=== PATIENT | female | born 1975 | race African-American/Black ===

== ENCOUNTER 2018-10-02 04:39 | Inpatient (IN) | payer SELFPAY ==
[2018-10-02] MEDS ORDERED: Morphine 4 MG/ML VIAL ONE (05:18)
[2018-10-02] MEDS ORDERED: Senokot S 8.6-50 MG TAB PO PRN (08:01)
[2018-10-02] MEDS ORDERED: Acetaminophen 325 MG TAB PO PRN (08:01)
[2018-10-02] MEDS ORDERED: Ketorolac Tromethamine 30 MG/ML VIAL IVP PRN (08:01)
[2018-10-02] MEDS ORDERED: Calcium Carbonate 500 MG ChewTAB PO PRN (08:01)
[2018-10-02] MEDS ORDERED: Ondansetron PF 4 MG/2 ML Vial IVP PRN (08:01)
[2018-10-02] MEDS ORDERED: Zolpidem Tartrate 5 MG TAB PO PRN (08:01)
[2018-10-02] MEDS ORDERED: hydrALAZINE 20 MG/ML VIAL SLOW IVP PRN (08:01)
[2018-10-02] MEDS ORDERED: Bisacodyl 10 MG SUPP PR PRN (08:01)
[2018-10-02] MEDS ORDERED: Cepastat Lozenges 1 LOZ PO PRN (08:01)
[2018-10-02] MEDS ORDERED: Loratadine 10 MG TAB PO PRN (08:01)
[2018-10-02] MEDS ORDERED: Sodium Chloride 0.65% Nasal 44 ML BOT EA NARE PRN (08:01)
[2018-10-02] MEDS ORDERED: Ondansetron ODT 4 MG TAB PO PRN (08:01)
[2018-10-02] MEDS ORDERED: Loperamide HCl 2 MG CAP PO PRN (08:01)
--- NOTE | 2018-10-02 08:32 | ULT ---
ULTRASOUND WITH DOPPLER DUPLEX VENOUS LOWER EXTREMITY LEFT: CPT: 94170 ICD-10-PCS: B54D HISTORY: Erythema, edema. TECHNIQUE: Color flow Doppler, spectral waveform analysis of pulsed Doppler, and salgeuro-scale imaging with lindsay comfort and augmentation, were used to evaluate the bilateral common femoral, femoral, popliteal, chain splitter ior tibial, and superficial femoral, veins; and the proximal portions of the profunda femoral and gre ater saphenous, veins. FINDINGS: Appropriate compressibility and flow within the imaged deep vein system of left lower extremity. IMPRESSION: 1. No deep vein thrombosis. 2. Incidental note of lymph nodes of the left inguinal region. Correlate clinically. Dominant visu alized lymph node is approximately 3.6 cm in length x 1.2 cm in diameter. A fatty hilum is visualize d. POS: [facility]
[2018-10-02] MEDS: HYDROcodone/Acetaminophen 5/325 mg Tablet PO PRN ×3 (08:33→20:52)
[2018-10-02] MEDS: Famotidine 20 MG TAB PO SCH ×2 (08:34→20:52)
[2018-10-02] MEDS: Enoxaparin Sodium 40 MG/0.4 ML SYRINGE SC SCH (08:35)
[2018-10-02] MEDS: Morphine 4 MG/ML VIAL IV PRN ×3 (10:05→23:01)
[2018-10-02 10:19] VITALS: BMI 56.2
[2018-10-02] MEDS: Piperacillin/Tazobactam 4.5 GM in Sodium Chloride 0.9% 100 ML IVPB SCH ×3 (12:11→23:21)
--- NOTE | 2018-10-02 13:50 | HP ---
PRIMARY CARE PHYSICIAN: [facility]. REASON FOR ADMISSION: Transfer from [facility] for left lower extremity cellulitis, sepsis. HISTORY OF PRESENT ILLNESS: This is a 43-year-old female, who has underlying morbid obesity, who presented to [facility] with a complaint of left lower extremity erythema, swelling, and pain. She was also having fever and chills. She did not have any chest pain or palpitation. The patient does not have any recall of any trauma or insect bite. The patient denies any fungal infection in toenails. She denies any similar problem in the past. The patient was having increasing amount of pain in her left lower extremity with 8/10 in intensity. She was also feeling vague discomfort in the groin on the left side. She was having difficulty walking because of pain and swelling and that is why she decided to go to emergency room for evaluation. At [facility], the patient had fever, tachycardia, as well as leukocytosis with left shift and she was meeting sepsis criteria. She had slightly elevated D-dimer and that is why CT angio was done, which was negative for pulmonary embolism. Her chest x-ray was unremarkable. She received antibiotic therapy there, and subsequently, she was transferred to our hospital for higher level of care. The patient was given morphine in our emergency room. An ultrasound was done, which was negative for any DVT. REVIEW OF SYSTEMS: CONSTITUTIONAL: Negative for weight loss or gain, ability to conduct usual activities. SKIN: Negative for rash, itching. EYES: Negative for double vision, pain. ENT/MOUTH: Negative for nose bleeding, neck stiffness, pain, tenderness. CARDIOVASCULAR: Negative for palpitations, dyspnea on exertion, orthopnea. RESPIRATORY: Negative for shortness of breath, wheezing, cough, hemoptysis, fever or night sweats. GASTROINTESTINAL: Negative for poor appetite, abdominal pain, heartburn, nausea, vomiting, constipation, or diarrhea. GENITOURINARY: Negative for urgency, frequency, dysuria, nocturia. MUSCULOSKELETAL: Negative for pain, swelling. NEUROLOGIC/PSYCHIATRIC: Negative for anxiety, depression. ALLERGY/IMMUNOLOGIC: Negative for skin rash, bleeding tendency. Please see my HPI for pertinent positives and negatives. All other review of systems reviewed and negative except as mentioned in HPI. PAST MEDICAL HISTORY: Morbid obesity. PAST SURGICAL HISTORY: Reviewed and negative. PAST PSYCHIATRIC HISTORY: Reviewed and negative. SOCIAL HISTORY: The patient drinks alcohol every week. She smokes cigarettes about less than half pack per day. She denies any other illicit drug abuse. FAMILY HISTORY: No strong family history of premature coronary artery disease, stroke, or cancer. ALLERGIES: NO KNOWN DRUG ALLERGIES. CURRENT HOME MEDICATIONS: The patient is not taking any prescribed or non-prescribed medications. EMERGENCY ROOM COURSE: The patient is given morphine 4 mg in our emergency room. The patient received IV fluid, vancomycin, Toradol, Zosyn, Zofran, morphine at [facility]. PHYSICAL EXAMINATION: VITAL SIGNS: On arrival, blood pressure 143/82, pulse 104, respiratory rate 18, temperature 99.0, saturation 98% on room air. Weight 127 kg. GENERAL: The patient is currently alert and oriented, in no acute distress. HEENT: Head; normocephalic, atraumatic. Eyes; pupils round, reactive to light. Extraocular muscle intact. ENT; oropharynx within normal limits. Moist mucous membranes. No oral lesion. No pharyngeal erythema. No exudate. NECK: Supple. No JVD. No thyromegaly. No carotid bruit. No jugular venous distention. LUNGS: Clear to auscultation without any rhonchi or rales. CARDIAC: S1 and S2, regular. Tachycardia. No murmur. No gallop. No rub. ABDOMEN: Soft. Bowel sounds present. Morbid obesity present. No peritoneal sign. No guarding. No rigidity. No rebound. BACK: Unremarkable. No CVA tenderness. EXTREMITIES: Upper extremities; passive movements of all joints are normal. Lower extremities; left lower extremity erythema, tenderness, and swelling noted. Good distal pulsation. No calf tenderness. SKIN: No skin rash, other than cellulitis of left lower extremity. NEUROLOGIC: Nonfocal examination. PSYCHIATRIC: Normal affect. SIGNIFICANT LABORATORY DATA: WBC 13.8, hemoglobin 10.8, platelets 421 with bandemia. INR 1.1. D-dimer 0.92. BMP; sodium 137, potassium 3.6, chloride 107, carbon dioxide 19, BUN 19, creatinine 1.06, glucose 103, and calcium 10.0. Lactic acid 1.7. LFT; AST 35, ALT 33, alkaline phosphatase 64, and albumin 4.2. test negative. Cardiac enzyme negative. ASSESSMENT AND PLAN: 1. Sepsis due to left lower extremity cellulitis. 2. Left lower extremity cellulitis. 3. Anemia, normocytic and normochromic. 4. Morbid obesity. PLAN: Admission to medical floor. Empiric antibiotic therapy with vancomycin. Pharmacy adjusted dose of Zosyn 4.5 g IV q.6 hourly. Pain control with morphine 4 mg q.4 hourly p.r.n. and Toradol 15 mg IV q.6 hourly p.r.n. DVT prophylaxis with Lovenox 40 mg subcu daily. GI prophylaxis with Pepcid 20 mg p.o. b.i.d. CODE STATUS: The patient is full code. The patient does not have any surrogate decision maker. DISPOSITION PLAN: Based on clinical course, we are expecting the patient's stay in hospital more than 2 midnights. Plan of care discussed with the patient in detail. This patient has negative CT angio, negative ultrasound of lower extremities, and negative chest x-ray. Job ID: [id number]
[2018-10-03] MEDS: HYDROcodone/Acetaminophen 5/325 mg Tablet PO PRN ×3 (00:37→20:16)
[2018-10-03 05:02] LABS: #Eosinphils 0.1 thou/uL (0.0-0.7); #Lymphocytes 1.8 thou/uL (1.20-3.40); #Monocytes 0.4 thou/uL (0.11-0.59); #Neutrophils 8.5 thou/uL (1.40-6.50); %Basophils 0.2 % (0.0-1.0); %Eosinophils 1.1 % (0.0-10.0); %Lymphocytes 16.2 % (21.0-51.0); %Neutrophils 78.5 % (42.0-75.0); Hemoglobin 8.6 g/dL (12.0-16.0); Mean Corpuscular HGB CONC 31.2 g/dL (32.0-36.0); Mean Corpuscular Hemoglobin 25.4 pg (27.0-31.0); Mean Corpuscular Volume 81.5 fL (78.0-98.0); Mean Platelet Volume 7.4 fL (7.4-10.4); Platelet Count 317 thou/uL (130-400); RBC Distribution Width 15.3 % (11.5-14.5); Red Blood Cell (RBC) Count 3.39 mill/uL (4.20-5.40); White Blood Cell (WBC) Count 10.8 thou/uL (4.8-10.8)
[2018-10-03 05:24] LABS: ALT (SGPT) 18 U/L (8-55); AST (SGOT) 13 U/L (5-34); Albumin 3.2 g/dL (3.5-5.0); Alkaline Phosphatase 51 U/L (40-150); Anion Gap 12 mmol/L (10-20); BUN (Urea Nitrogen) 9 mg/dL (7.0-18.7); Bilirubin, Total 0.4 mg/dL (0.2-1.2); Calc. Creatinine Clearance 203 mL/min (70-130); Calcium 8.5 mg/dL (7.8-10.44); Carbon Dioxide 18 mmol/L (22-29); Chloride 109 mmol/L (98-107); Estimated GFR-MDRD Greater than 90; Globulin 3.2 g/dL (2.4-3.5); Glucose 107 mg/dL (70-105); Potassium 3.6 mmol/L (3.5-5.1); Protein, Total 6.4 g/dL (6.0-8.3); Sodium 135 mmol/L (136-145)
[2018-10-03] MEDS: Piperacillin/Tazobactam 4.5 GM in Sodium Chloride 0.9% 100 ML IVPB SCH ×3 (05:24→18:10)
[2018-10-03] MEDS: Morphine 4 MG/ML VIAL IV PRN (08:21)
[2018-10-03] MEDS: Famotidine 20 MG TAB PO SCH ×2 (08:22→20:15)
[2018-10-03] MEDS: Enoxaparin Sodium 40 MG/0.4 ML SYRINGE SC SCH (08:22)
[2018-10-03] MEDS ORDERED: Polyethylene Glycol 3350 17 GM Packet PO PRN (12:05)
--- NOTE | 2018-10-03 14:44 | PDOC.PN ---
- Subjective Encounter Start Date: 10/03/18 Encounter Start Time: 11:00 Still complaining of some pain in the left leg. Has difficulty putting weight on it. Has pain up to the groin area. - Objective Resuscitation Status - Order Detail: 10/02/18 07:53 Resuscitation Status Routine Resuscitation Status: FULL: Full Resuscitation Vital Signs & Weight: Vital Signs (12 hours) Temp Pulse Resp BP Pulse Ox 10/03/18 11:09 99.7 F H 81 18 145/79 H 97 10/03/18 08:00 100 10/03/18 07:50 99.5 F 97 20 172/77 H 100 10/03/18 05:29 150/78 H Weight Weight 307 lb 5 oz I&O: 10/02/18 10/03/18 10/04/18 06:59 06:59 06:59 Intake Total 1720 200 Balance 1720 200 Result Diagrams: 10/03/18 04:49 10/03/18 04:48 Phys Exam - Physical Examination Constitutional: NAD Morbidly obese Respiratory: no wheezing, no rales, no rhonchi, clear to auscultation bilateral Cardiovascular: RRR, no significant murmur, no rub Gastrointestinal: soft, non-tender, no distention, positive bowel sounds Musculoskeletal: no edema, pulses present Left calf erythema, warmth and TTP. Very tender over the calf and medial thigh area. No erytema or warmth in the thigh. Neurological: non-focal, normal sensation, moves all 4 limbs Psychiatric: normal affect, A&O x 3 Skin: no rash, normal turgor, cap refill <2 seconds Dx/Plan (1) Cellulitis Code(s): L03.90 - CELLULITIS, UNSPECIFIED Status: Acute (2) Morbid obesity Code(s): E66.01 - MORBID (SEVERE) OBESITY DUE TO EXCESS CALORIES Status: Acute (3) Lymphadenopathy Code(s): R59.1 - GENERALIZED ENLARGED LYMPH NODES Status: Acute Comment: Inguinal ELLIOT on doppler. - Plan * Cellulitis with DVT ruled out. * Continue Vanc, Zosyn. * Pain meds including IV morphine. * Will likely requre 2 more days before switching to po.
[2018-10-04] MEDS: Piperacillin/Tazobactam 4.5 GM in Sodium Chloride 0.9% 100 ML IVPB SCH ×5 (00:22→23:24)
[2018-10-04] MEDS: Enoxaparin Sodium 40 MG/0.4 ML SYRINGE SC SCH (08:01)
[2018-10-04] MEDS: Famotidine 20 MG TAB PO SCH ×2 (08:01→21:21)
[2018-10-04] MEDS: HYDROcodone/Acetaminophen 5/325 mg Tablet PO PRN ×2 (08:06→21:25)
[2018-10-04] MEDS ORDERED: Hydrochlorothiazide 25 MG TAB PO SCH (10:00)
--- NOTE | 2018-10-04 10:04 | PDOC.PN ---
- Subjective Encounter Start Date: 10/04/18 Encounter Start Time: 10:01 Feels a little better. Still has some pain, but improved. Still has some pain in the left upper, medial thigh near the groin. Feels a little chest congestion. - Objective Resuscitation Status - Order Detail: 10/02/18 07:53 Resuscitation Status Routine Resuscitation Status: FULL: Full Resuscitation Vital Signs & Weight: Vital Signs (12 hours) Temp Pulse Resp BP Pulse Ox 10/04/18 07:49 99.6 F 88 16 164/94 H 93 L 10/04/18 04:06 97.8 F 75 18 165/90 H 100 10/04/18 00:29 98.5 F 74 18 152/90 H 97 Weight Weight 307 lb 5 oz I&O: 10/03/18 10/04/18 10/05/18 06:59 06:59 06:59 Intake Total 1720 1120 Balance 1720 1120 Result Diagrams: 10/03/18 04:49 10/03/18 04:48 Phys Exam - Physical Examination Constitutional: NAD Obese. Respiratory: no wheezing, no rales, no rhonchi Cardiovascular: RRR, no significant murmur, no rub Gastrointestinal: soft, non-tender, no distention, positive bowel sounds Musculoskeletal: no edema Left calf with erythema and warmth. TTP at calf and upper, medial thigh. Neurological: non-focal, normal sensation, moves all 4 limbs Psychiatric: normal affect, A&O x 3 Dx/Plan (1) Cellulitis Code(s): L03.90 - CELLULITIS, UNSPECIFIED Status: Acute (2) Morbid obesity Code(s): E66.01 - MORBID (SEVERE) OBESITY DUE TO EXCESS CALORIES Status: Acute (3) Lymphadenopathy Code(s): R59.1 - GENERALIZED ENLARGED LYMPH NODES Status: Acute Comment: Inguinal ELLIOT on doppler. (4) HTN (hypertension) Code(s): I10 - ESSENTIAL (PRIMARY) HYPERTENSION Status: Acute (5) Anemia Code(s): D64.9 - ANEMIA, UNSPECIFIED Status: Acute - Plan * Looking better. Continue IV abx one more day. * Start HCTZ for HTN. * Up and ambulate as tolerated. * Recheck CBC and anemia panel in am.
[2018-10-04 12:05] LABS: Vancomycin, Trough 4.8 ug/mL
[2018-10-04] MEDS: Diabetic Tussin 200 MG/10 ML UDCUP PO PRN (21:25)
[2018-10-05 05:27] VITALS: BP 147/83; TEMP 98.1
[2018-10-05] MEDS: Piperacillin/Tazobactam 4.5 GM in Sodium Chloride 0.9% 100 ML IVPB SCH ×2 (05:33→11:38)
[2018-10-05 07:02] LABS: #Eosinphils 0.2 thou/uL (0.0-0.7); #Lymphocytes 2.1 thou/uL (1.20-3.40); #Monocytes 0.8 thou/uL (0.11-0.59); %Basophils 0.6 % (0.0-1.0); %Eosinophils 3.1 % (0.0-10.0); %Lymphocytes 29.7 % (21.0-51.0); %Monocytes 10.5 % (0.0-10.0); %Neutrophils 56.1 % (42.0-75.0); Hemoglobin 9.1 g/dL (12.0-16.0); Mean Corpuscular HGB CONC 32.2 g/dL (32.0-36.0); Mean Corpuscular Hemoglobin 25.4 pg (27.0-31.0); Mean Corpuscular Volume 78.9 fL (78.0-98.0); Mean Platelet Volume 7.3 fL (7.4-10.4); Platelet Count 326 thou/uL (130-400); RBC Distribution Width 15.3 % (11.5-14.5); Red Blood Cell (RBC) Count 3.58 mill/uL (4.20-5.40); White Blood Cell (WBC) Count 7.1 thou/uL (4.8-10.8)
[2018-10-05 07:28] LABS: Anion Gap 13 mmol/L (10-20); BUN (Urea Nitrogen) 9 mg/dL (7.0-18.7); Calc. Creatinine Clearance 195 mL/min (70-130); Calcium 9.6 mg/dL (7.8-10.44); Carbon Dioxide 22 mmol/L (22-29); Chloride 106 mmol/L (98-107); Estimated GFR-MDRD Greater than 90; Glucose 96 mg/dL (70-105); Iron 17 ug/dL (50-170); Iron Binding Capacity, Total 353 mcg/dL (265-497); Potassium 3.6 mmol/L (3.5-5.1); Sodium 137 mmol/L (136-145)
[2018-10-05] MEDS: Enoxaparin Sodium 40 MG/0.4 ML SYRINGE SC SCH (07:55)
[2018-10-05] MEDS ORDERED: Hydrochlorothiazide 25 MG TAB PO SCH (09:00)
[2018-10-05 09:11] LABS: Folate (Folic Acid) 7.3 ng/mL (7.0-31.4)
[2018-10-05] MEDS: HYDROcodone/Acetaminophen 5/325 mg Tablet PO PRN (10:14)
[2018-10-05] MEDS: Diabetic Tussin 200 MG/10 ML UDCUP PO PRN (10:14)
[2018-10-05] MEDS: Famotidine 20 MG TAB PO SCH (11:05)
--- NOTE | 2018-10-06 02:19 | DIS ---
DATE OF ADMISSION: 10/02/2018 DATE OF DISCHARGE: 10/05/2018 DISCHARGE DIAGNOSES: 1. Cellulitis of left lower extremity. 2. Hypertension. 3. Morbid obesity. 4. Left inguinal lymphadenopathy. 5. Mild iron deficiency anemia. HISTORY OF PRESENT ILLNESS: This patient is a 43-year-old female, who presented to the emergency department with pain and swelling in her left lower extremity. She had had no antecedent injury. The patient had some mild leukocytosis and fever , as well as tachycardia. She had elevated D-dimer. CT scan was done, showed no pulmonary embolus. Chest x-ray was unremarkable. She was transferred to our facility for cellulitis, left lower extremity erythema and warmth circumferentially around the calf, below the knee and to the level of ankle. Doppler ultrasound showed no DVT that there was a lymph node in the left inguinal canal area. HOSPITAL COURSE: The patient was admitted to the hospital, started on IV antibiotics including vancomycin and Zosyn over the following couple days. The patient's pain improved. Her erythema reduced significantly and she remained afebrile. She was felt to be stable for discharge to home in good condition. Her blood pressure was remaining high throughout her hospital stay. She was started on some hydrochlorothiazide and encouraged to follow up on this as an outpatient. PHYSICAL EXAMINATION: VITAL SIGNS: At the time of discharge, temperature is 98.1, pulse 73, respirations 18, O2 saturation 97% on room air, and blood pressure is 147/83. GENERAL APPEARANCE: Age-appropriate female, obese, no distress. HEART: Regular. LUNGS: Clear. EXTREMITIES: Left lower extremity had significantly diminished erythema and warmth and tenderness to palpation. DISPOSITION: The patient is discharged to home. She will be on a heart healthy diet. ACTIVITY: As tolerated. DISCHARGE MEDICATIONS: She will be on amoxicillin 875 one p.o. b.i.d., HCTZ 25 mg p.o. daily. FOLLOWUP: She is to follow up at [facility] and she can return to the hospital should she have any problems prior to that time. Of note, the patient also had hemoglobin of 9.1 at the time of discharge. Her MCV was 78.9. Her iron levels were low at 17, with normal B12 and folate. The patient can follow up with [facility] to have this addressed further. Time spent in discharge activities, including face time with the patient was 35 min. Job ID: [id number] MTDD
== END 2018-10-05 14:03 | disposition home or self-care (01) | DRG 603 ==
LOC: ERS 04:39 → T4-A 07:57
PROVIDERS: ADMIT Hospitalist; ATTEND Hospitalist
DX: L03.116 Cellulitis of left lower limb (principal); Z68.43 Body mass index [BMI] 50.0-59.9, adult; E66.01 Morbid (severe) obesity due to excess calories; F17.210 Nicotine dependence, cigarettes, uncomplicated; R59.1 Generalized enlarged lymph nodes; I10 Essential (primary) hypertension; D50.9 Iron deficiency anemia, unspecified
CPT/HCPCS: 36415; 80048; 80053; 80202; 82607; 82746; 83540; 83550; 85025; 96374; J1650; J2270; J2543; J3370; J3490; J7050

== ENCOUNTER 2020-02-04 10:43 | Emergency (ER) | payer OTHER ==
[2020-02-04] MEDS ORDERED: Enoxaparin Sodium 30 MG/0.3 ML SYRINGE ONE (12:33)
[2020-02-04] MEDS ORDERED: Enoxaparin Sodium 100 MG/ML SYRINGE ONE (12:33)
--- NOTE | 2020-02-04 14:24 | ULT ---
LEFT LOWER EXTREMITY VENOUS DUPLEX EXAM: 02/04/20 HISTORY: Left leg pain and swelling. FINDINGS: Real time color Doppler evaluation of the left lower extremity was performed from groin to calf. This includes evaluation of the common femoral, superficial and profunda femoral, saphenous, popliteal an d posterior tibial veins. This shows evidence of nonocclusive thrombus in the more distal aspect of the popliteal vein and posterior tibial veins. IMPRESSION: DVT of the calf region with some nonocclusive thrombus seen in the more distal popliteal vein and pos terior tibial veins. POS: [facility]
== END 2020-02-04 13:09 | disposition home or self-care (01) ==
LOC: ERS 10:43
DX: I82.4Z2 Acute embolism and thrombosis of unspecified deep veins of left distal lower extremity (principal); I10 Essential (primary) hypertension; F17.210 Nicotine dependence, cigarettes, uncomplicated
CPT/HCPCS: 96372; J1650

== ENCOUNTER 2020-06-09 09:01 | Emergency (ER) | payer OTHER ==
--- NOTE | 2020-06-09 11:17 | ULT ---
EXAM: Bilateral lower extremity venous Doppler US HISTORY: bilateral lower extremity edema and pain FINDINGS: Grayscale, color-flow, Doppler evaluation, spectral analysis of the bilateral lower extremities venou s structures is performed with 2-D imaging. The bilateral common femoral, superficial femoral, popliteal, posterior tibial, proximal greater saphenous and profunda femoral veins are imaged. Exam is limited due to patient's body habitus. There is normal luminal compressibility, flow, and augmentation in the visualized deep venous structu res of the bilateral lower extremities. IMPRESSION: No evidence of a deep vein thrombosis in either lower extremity.
[2020-06-09 11:40] LABS: ALT (SGPT) 21 U/L (8-55); AST (SGOT) 20 U/L (5-34); Albumin 3.6 g/dL (3.5-5.0); Alkaline Phosphatase 67 U/L (40-110); Anion Gap 10 mmol/L (10-20); BUN (Urea Nitrogen) 11 mg/dL (7.0-18.7); Bilirubin, Total 0.3 mg/dL (0.2-1.2); Calc. Creatinine Clearance 0 mL/min (70-130); Calcium 8.8 mg/dL (7.8-10.44); Carbon Dioxide 24 mmol/L (22-29); Chloride 107 mmol/L (98-107); Globulin 4.2 g/dL (2.4-3.5); Glucose 94 mg/dL (70-105); Protein, Total 7.8 g/dL (6.0-8.3); Sodium 137 mmol/L (136-145)
[2020-06-09 11:54] LABS: #Basophils 0.1 thou/uL (0.0-0.2); #Eosinphils 0.2 thou/uL (0.0-0.7); #Lymphocytes 2.3 thou/uL (1.20-3.40); #Monocytes 0.7 thou/uL (0.11-0.59); #Neutrophils 3.7 thou/uL (1.40-6.50); %Eosinophils 2.9 % (0.0-10.0); %Monocytes 10.2 % (0.0-10.0); %Neutrophils 52.9 % (42.0-75.0); Hemoglobin 8.6 g/dL (12.0-16.0); Mean Corpuscular HGB CONC 29.4 g/dL (32.0-36.0); Mean Corpuscular Hemoglobin 19.1 pg (27.0-31.0); Mean Corpuscular Volume 64.8 fL (78.0-98.0); Mean Platelet Volume 10.8 fL (7.4-10.4); Platelet Count 339 thou/uL (130-400); RBC Distribution Width 19.1 % (11.5-14.5); Red Blood Cell (RBC) Count 4.51 mill/uL (4.20-5.40); White Blood Cell (WBC) Count 7.1 thou/uL (4.8-10.8)
[2020-06-09 12:04] LABS: Reflex for Review?? YES
[2020-06-09 12:05] LABS: Hypochromia MODERATE=16-30 cells (100X) (0-5/hpf); MDiff Complete? YES; Microcytosis MODERATE=15-30 cells (100X) (0-5/hpf); Platelet Morphology Comment Appears Adequate; Polychromasia MODERATE = 3-4 cells (100X) (0-2/hpf); Spherocytes SLIGHT = 1-5 cells (100X) (None Seen); Target Cells SLIGHT = 2-5 cells (100X) (0-1/hpf)
== END 2020-06-09 13:14 | disposition home or self-care (01) ==
LOC: ERS 09:01
DX: R60.0 Localized edema (principal); E66.9 Obesity, unspecified; Z86.718 Personal history of other venous thrombosis and embolism; F17.210 Nicotine dependence, cigarettes, uncomplicated
CPT/HCPCS: 36415; 80053; 83880; 85025; 85060; 93970

== ENCOUNTER 2020-09-20 11:03 | Emergency (ER) | payer OTHER ==
[2020-09-20] MEDS ORDERED: Ketorolac Tromethamine 30 MG/ML VIAL ONE (12:01)
== END 2020-09-20 12:20 | disposition home or self-care (01) ==
LOC: ERS 11:03
DX: M54.41 Lumbago with sciatica, right side (principal); E66.9 Obesity, unspecified; F17.210 Nicotine dependence, cigarettes, uncomplicated; Z79.899 Other long term (current) drug therapy
CPT/HCPCS: 96372; 99283; J1885

== ENCOUNTER 2022-07-03 10:04 | Emergency (ER) | payer BC, OTHER | END 2022-07-03 11:46 | disposition home or self-care (01) | LOC: ERS 10:04 | DX: H10.9 Unspecified conjunctivitis (principal); L03.213 Periorbital cellulitis; I11.0 Hypertensive heart disease with heart failure; I50.9 Heart failure, unspecified; F17.290 Nicotine dependence, other tobacco product, uncomplicated; Z79.01 Long term (current) use of anticoagulants | CPT/HCPCS: 99283 ==